=== PATIENT | female | born 1995 | race African-American/Black ===

== ENCOUNTER → 2019-05-11 | Outpatient (CLI) | payer OTHER ==
--- NOTE | 2019-05-11 15:06 | RADIOLOGY REPORT (SQ) ---
EXAM DESCRIPTION: NM PARATHYROID IMAGING COMPLETED DATE/TIME: 05/11/2019 1:49 pm REASON FOR STUDY: HYPERPARATHYROIDISM (E21.3) E21.3 HYPERPARATHYROIDISM, UNSPECIFIED COMPARISON: None. RADIONUCLIDE AND DOSE: 21.5 millicuries Tc-99m Sestamibi. The route of agent administration: Intravenous ADDITIONAL DRUGS AND DOSES: None. TECHNIQUE: Early and delayed images of the neck acquired following radionuclide administration. LIMITATIONS: None. FINDINGS: Thyroid: Normal size. Homogeneous activity. Normal washout. No focal lesions. Parathyroid: No retained activity in the thyroid or elsewhere in the neck to indicate a parathyroid a denoma. Other: No other significant findings. IMPRESSION: NORMAL STUDY. NO EVIDENCE OF PARATHYROID ADENOMA. TECHNICAL DOCUMENTATION: JOB ID: [id number] [employer]- All Rights Reserved Reading location - IP/workstation name: [email or web address]
== END ==
LOC: RAD 10:13
PROVIDERS: ATTEND Internal Medicine Endocrinology, Diabetes & Metabolism
DX: E21.3 Hyperparathyroidism, unspecified (principal)
CPT/HCPCS: 78070; A9500; Q9969

== ENCOUNTER 2019-06-14 12:17 | Emergency (ER) | payer OTHER ==
[2019-06-14] MEDS ORDERED: ONDANSETRON HCL INJ/PF 4 MG/2 ML SDV IV ONE (12:43)
[2019-06-14] MEDS ORDERED: NORMAL SALINE 1000 ML 1,000 ML IV ONE (12:43)
--- NOTE | 2019-06-14 12:43 | ER Document Report ---
ED Medical Screen (RME) - General Chief Complaint: Abdominal Pain Stated Complaint: ABDOMINAL PAIN Time Seen by Provider: 06/14/19 12:40 Primary Care Provider: MINE MIRELES MD [Primary Care Provider] - Follow up as needed TRAVEL OUTSIDE OF THE [place] IN LAST 30 DAYS: No - HPI Notes: 06/14/19 12:42 Patient is a 23-year-old female no significant past medical history who presents complaining of upper abdominal pain with associated nausea and vomiting for the past couple days. She is still urinating normally and having normal bowel movement. Denies drug allergies. No fever. No surgical history to her abdomen. I have treated and performed a rapid initial assessment of this patient. A comprehensive ED assessment and evaluation of the patient, analysis of test results and completion of medical decision making process will be conducted by additional ED providers. PHYSICAL EXAMINATION: GENERAL: Well-appearing, well-nourished and in no acute distress. A&Ox4. Answers questions appropriately. Abdomen: Limited exam in triage, but there is some tenderness to the epigastrium and right upper quadrant. Physical Exam - Vital signs Vitals: Pulse Resp BP Pulse Ox 86 16 117/67 100 06/14/19 12:28 06/14/19 12:28 06/14/19 12:28 06/14/19 12:28 Course - Vital Signs Vital signs: Temp Pulse Resp BP Pulse Ox 86 16 117/67 100 06/14/19 12:28 06/14/19 12:28 06/14/19 12:28 06/14/19 12:28 Doctor's Discharge - Discharge Referrals: MINE MIRELES MD [Primary Care Provider] - Follow up as needed
[2019-06-14 13:34] LABS: ABSOLUTE EOSINOPHILS # (AUTO) 0.1 10^3/uL (0.0-0.6); ABSOLUTE LYMPHOCYTES (AUTO) 1.8 10^3/uL (0.5-4.7); ABSOLUTE MONOCYTES (AUTO) 0.4 10^3/uL (0.1-1.4); ABSOLUTE NEUT (AUTO) 3.4 10^3/uL (1.7-8.2); BASOPHILS % (AUTO) 0.4 % (0-2); EOSINOPHILS % (AUTO) 1.5 % (0-6); HEMATOCRIT 39.5 % (36.0-47.0); HEMOGLOBIN 12.8 g/dL (12.0-15.5); LYMPHOCYTES % (AUTO) 30.9 % (13-45); MEAN CORPUSCULAR HEMOGLOBIN 28.1 pg (27.0-33.4); MEAN CORPUSCULAR HGB CONC 32.4 g/dL (32.0-36.0); MEAN CORPUSCULAR VOLUME 87 fl (80-97); MONOCYTES % (AUTO) 7.7 % (3-13); PLATELET COUNT 275 10^3/uL (150-450); RED BLOOD COUNT 4.55 10^6/uL (3.72-5.28); RED CELL DISTRIBUTION WIDTH 12.1 % (11.5-14.0); SEGMENTED NEUTROPHILS % (AUTO) 59.5 % (42-78); TOTAL CELLS COUNTED % (AUTO) 100 %; WHITE BLOOD COUNT 5.7 10^3/uL (4.0-10.5)
[2019-06-14 13:47] LABS: APPEARANCE,URINE SLIGHTLY-CLOUDY; BILIRUBIN,URINE NEGATIVE (NEGATIVE); COLOR,URINE YELLOW; GLUCOSE, URINE NEGATIVE (NEGATIVE); KETONES,URINE NEGATIVE (NEGATIVE); PROTEIN,URINE NEGATIVE (NEGATIVE); URINE SPECIFIC GRAVITY 1.012; UROBILINOGEN,URINE NEGATIVE mg/dL (<2.0)
[2019-06-14 13:54] LABS: ALBUMIN 4.1 g/dL (3.5-5.0); ALKALINE PHOSPHATASE 77 U/L (38-126); ANION GAP 7 (5-19); ASPARTATE AMINO TRANSFERASE 22 U/L (14-36); BILIRUBIN,DIRECT 0.2 mg/dL (0.0-0.4); BILIRUBIN,TOTAL 0.4 mg/dL (0.2-1.3); BLOOD UREA NITROGEN 7 mg/dL (7-20); CALCIUM 11.8 mg/dL (8.4-10.2); CARBON DIOXIDE 27 mmol/L (22-30); CHLORIDE 106 mmol/L (98-107); GLUCOSE 87 mg/dL (75-110); POTASSIUM 4.6 mmol/L (3.6-5.0); TOTAL PROTEIN 7.1 g/dL (6.3-8.2)
--- NOTE | 2019-06-14 13:57 | RADIOLOGY REPORT (SQ) ---
EXAM DESCRIPTION: U/S ABDOMEN LIMITED W/O DOP COMPLETED DATE/TIME: 06/14/2019 1:41 pm REASON FOR STUDY: epigastric/RUQ pain COMPARISON: None. TECHNIQUE: Dynamic and static grayscale images acquired of the abdomen and recorded on PACS. Additio shane selected color Doppler and spectral images recorded. LIMITATIONS: None. FINDINGS: PANCREAS: No masses. Visualized pancreatic duct normal caliber. LIVER: No masses. Echotexture normal. LIVER VASCULATURE: Normal directional flow of the main portal vein and hepatic veins. GALLBLADDER: Contracted. No stones. Normal wall thickness. No pericholecystic fluid. ULTRASOUND-DETECTED KENNEDY'S SIGN: Negative. INTRAHEPATIC DUCTS AND COMMON DUCT: CBD and intrahepatic ducts normal caliber. No filling defects. INFERIOR VENA CAVA: Normal flow. AORTA: No aneurysm. RIGHT KIDNEY: Normal size. Normal echogenicity. No solid or suspicious masses. No hydronephrosis. P ossible 6 mm lower pole calculus. PERITONEAL AND RIGHT PLEURAL SPACE: No ascites or effusions. OTHER: No other significant findings. IMPRESSION: POSSIBLE NONOBSTRUCTING CALCULUS IN THE LOWER POLE OF THE RIGHT KIDNEY. NO OTHER SIGNIF ICANT FINDINGS. TECHNICAL DOCUMENTATION: JOB ID: [id number] [employer]- All Rights Reserved Reading location - IP/workstation name: [email or web address]
[2019-06-14] MEDS ORDERED: ONDANSETRON HCL INJ/PF 4 MG/2 ML SDV ONE (14:50)
--- NOTE | 2019-06-14 14:55 | ER Document Report ---
ED General - General Chief Complaint: Abdominal Pain Stated Complaint: ABDOMINAL PAIN Time Seen by Provider: 06/14/19 12:40 Primary Care Provider: MINE MIRELES MD [NO LOCAL MD] - Follow up as needed TRAVEL OUTSIDE OF THE [place] IN LAST 30 DAYS: No - Related Data Allergies/Adverse Reactions: No Known Allergies Allergy (Verified 06/14/19 12:45) Past Medical History - Social History Smoking Status: Never Smoker Chew tobacco use (# tins/day): No Frequency of alcohol use: None Drug Abuse: None Family History: Reviewed & Not Pertinent Patient has suicidal ideation: No Patient has homicidal ideation: No Physical Exam - Vital signs Vitals: Pulse Resp BP Pulse Ox 86 16 117/67 100 06/14/19 12:28 06/14/19 12:28 06/14/19 12:28 06/14/19 12:28 - Notes Notes: Patient is [facility] complaining of abdominal pain going on for the past 2 days. She said nausea and 2 episodes of vomiting one yesterday and one this morning. Pain seems be worse with fatty greasy foods. She says no fevers chest pain shortness of breath diarrhea or dysuria with this. Past medical history significant for elevated parathyroid hormone no diabetes or hypertension Social history does not smoke or drink LMP May 26 Review of systems pertinent positives and negatives in HPI otherwise all the systems were reviewed and acutely negative PHYSICIAN EXAM -vital signs are noted triage note and note from triage reviewed GENERAL: Well-appearing, well-nourished and in __no acute distress____ HEAD: Atraumatic, normocephalic. EYES: Pupils equal round and reactive to light, extraocular movements intact, sclera anicteric, conjunctiva are normal. ENT: nares patent, oropharynx clear without exudates. Moist mucous membranes. NECK: supple without lymphadenopathy LUNGS: Breath sounds clear to auscultation bilaterally and equal. No wheezes rales or rhonchi. HEART: Regular rate and rhythm without murmurs ABDOMEN: Soft, nontender, normoactive bowel sounds. Nontender even to deep palpation EXTREMITIES: No deformity, no edema. NEUROLOGICAL: No focal neurological deficits. Moves all extremities spontaneously and on command. PSYCH: Normal mood, normal affect. SKIN: Warm, Dry, normal turgor, no rashes or lesions noted. BACK-nontender in the midline diff Viral syndrome biliary colic Course - Re-evaluation Re-evalutation: 06/14/19 16:32 ED patient is remained stable with serial exams abdomen is remained nontender she was given IV fluids from triage and is tolerating p.o.'s here Ultrasound report was reviewed. Her symptoms not consistent with a kidney stone Medical decision making patient presents with pain across her upper abdomen as sociated with eating fatty greasy foods spelt she has some component of biliary colic. Her symptoms not consistent with a kidney stone and the not even sure it was a kidney stone but no findings to suggest a cholecystitis or gallstones she looks well at this point think she be discharged home. I discussed finds with patient advises that she is to follow-up with her family doctor for a HIDA scan do not feel this is related to her calcium however the calcium may be contributing to possible kidney stone At this time there is no indication for admission. I have discussed the findings with patient/family with return precautions and follow-up recommendations. Verbal discharge instructions given at the bedside and opportunity for questions given. Medication warnings were given if indicated. Patient is in agreement with this plan and has verbalized understanding of return precautions and the need for primary care follow-up as directed.. 06/14/19 16:33 06/14/19 16:34 - Vital Signs Vital signs: Temp Pulse Resp BP Pulse Ox 98.5 F 86 16 117/67 100 06/14/19 15:53 06/14/19 12:28 06/14/19 12:28 06/14/19 12:28 06/14/19 12:28 - Laboratory Result Diagrams: 06/14/19 13:15 06/14/19 13:15 Laboratory results interpreted by me: 06/14/19 06/14/19 13:15 13:15 Calcium 11.8 H Leukocyte Esterase Rfl TRACE H Urine Ascorbic Acid 20 H - Diagnostic Test Radiology reviewed: Reports reviewed Discharge - Discharge Clinical Impression: Biliary dyskinesia Abdominal pain Qualifiers: Abdominal location: upper abdomen, unspecified Qualified Code(s): R10.10 - Upper abdominal pain, unspecified Condition: Good Disposition: HOME, SELF-CARE Instructions: Abdominal Pain ([facility]), Gallbladder Disease ([facility]) Additional Instructions: Please review the discharge instructions, they will tell you about your disease/injury and what you need to return to the ED for Return to the ED if you feel worse or can follow-up with your family doctor Avoid fatty greasy foods Follow-up with your family doctor in 1 to 2 days as you will probably need a HIDA scan check your gallbladder and follow-up on your calcium level Prescriptions: Ondansetron HCl [Zofran 4 mg Tablet] 1 tab PO Q4H PRN #12 tablet PRN Reason: Referrals: MINE MIRELES MD [NO LOCAL MD] - Follow up as needed
[2019-06-14 16:58] VITALS: BP 117/68
== END 2019-06-14 17:04 | disposition home or self-care (01) ==
LOC: ER 12:17
DX: K82.8 Other specified diseases of gallbladder (principal); R10.10 Upper abdominal pain, unspecified; R11.2 Nausea with vomiting, unspecified
CPT/HCPCS: 99284; 96361; 96374; 36415; 83690; 85025; 81025; 80053; 81001; 76705; J2405; J7030

== ENCOUNTER → 2019-07-13 | Outpatient (CLI) | payer OTHER ==
[2019-07-13 12:53] LABS: ALBUMIN 4.2 g/dL (3.5-5.0); CALCIUM 10.5 mg/dL (8.4-10.2); PHOSPHORUS 3.1 mg/dL (2.5-4.5)
== END ==
LOC: OD 12:05
PROVIDERS: ATTEND Otolaryngology
DX: E21.3 Hyperparathyroidism, unspecified (principal)
CPT/HCPCS: 36415; 82040; 82306; 82310; 83735; 83970; 84100

== ENCOUNTER 2019-07-21 08:52 | Day surgery (SDC) | payer OTHER ==
[2019-07-19 11:52] LABS: ABSOLUTE EOSINOPHILS # (AUTO) 0.1 10^3/uL (0.0-0.6); ABSOLUTE LYMPHOCYTES (AUTO) 1.6 10^3/uL (0.5-4.7); ABSOLUTE MONOCYTES (AUTO) 0.3 10^3/uL (0.1-1.4); ABSOLUTE NEUT (AUTO) 2.5 10^3/uL (1.7-8.2); BASOPHILS % (AUTO) 0.6 % (0-2); EOSINOPHILS % (AUTO) 2.6 % (0-6); HEMATOCRIT 38.4 % (36.0-47.0); HEMOGLOBIN 12.6 g/dL (12.0-15.5); MEAN CORPUSCULAR HEMOGLOBIN 28.4 pg (27.0-33.4); MEAN CORPUSCULAR HGB CONC 32.9 g/dL (32.0-36.0); MEAN CORPUSCULAR VOLUME 86 fl (80-97); MONOCYTES % (AUTO) 7.5 % (3-13); PLATELET COUNT 322 10^3/uL (150-450); RED BLOOD COUNT 4.45 10^6/uL (3.72-5.28); RED CELL DISTRIBUTION WIDTH 12.3 % (11.5-14.0); SEGMENTED NEUTROPHILS % (AUTO) 54.3 % (42-78); TOTAL CELLS COUNTED % (AUTO) 100 %; WHITE BLOOD COUNT 4.5 10^3/uL (4.0-10.5)
[2019-07-19 12:11] LABS: ANION GAP 8 (5-19); BLOOD UREA NITROGEN 8 mg/dL (7-20); CALCIUM 10.9 mg/dL (8.4-10.2); CARBON DIOXIDE 23 mmol/L (22-30); CHLORIDE 109 mmol/L (98-107); GLUCOSE 84 mg/dL (75-110); POTASSIUM 5.1 mmol/L (3.6-5.0)
[~2019-07-21 08:52] MED LIST: CEFAZOLIN SODIUM 2 GM in DEXTROSE 5%-WATER 100 ML IV PRN; DEXAMETHASONE SOD PHOSPHATE INJ 4 MG/1 ML VIAL ONE; GLYCOPYRROLATE 1 MG/5 ML VIAL ONE; LACTATED RINGERS 1000 ML IV PRN; LIDOCAINE 0.5% INJ-PF (5 MG/ML) 50 ML SDV SUBCUT PRN; LIDOCAINE 2% INJ-PF (20 MG/ML) 2 ML AMPUL ONE; NEOSTIGMINE METHYLSULFATE 10 MG/10 ML VIAL ONE; ONDANSETRON HCL INJ/PF 4 MG/2 ML SDV ONE; OXYMETAZOLINE HCL 0.05% NASAL SPRAY 15 ML BOTTLE ONE; PHENYLEPHRINE HCL INJ/PF 10 MG/1 ML SDV ONE; ROCURONIUM BROMIDE INJ 50 MG/5 ML VIAL IV ONE; SUCCINYLCHOLINE CHLORIDE INJ 200 MG/10 ML VIAL ONE
[2019-07-21] MEDS ORDERED: FENTANYL CITRATE INJ/PF 250 MCG/5 ML AMPULE ONE (09:32)
[2019-07-21] MEDS ORDERED: MIDAZOLAM 2 MG/2 ML INJ ONE (09:32)
[2019-07-21] MEDS ORDERED: PROPOFOL INJ 200 MG/20 ML VIAL IV ONE (09:33)
[2019-07-21] MEDS ORDERED: LIDOCAINE 2%/EPINEPHRINE INJ 1.7 ML CARTRIDGE ONE (09:35)
[2019-07-21] MEDS ORDERED: MEPERIDINE HCL/PF INJ 25 MG/1 ML DISP.SYRIN IV PRN (10:33)
[2019-07-21] MEDS ORDERED: PROMETHAZINE HCL INJ 25 MG/1 ML VIAL IV PRN ×2 (10:33)
[2019-07-21] MEDS ORDERED: DIPHENHYDRAMINE HCL 50 MG/ML VIAL IV PRN (10:33)
[2019-07-21] MEDS ORDERED: FENTANYL CITRATE INJ/PF 100 MCG/2 ML AMPUL IV PRN ×3 (10:33)
[2019-07-21] MEDS ORDERED: OXYCODONE-ACETAMINOPHEN 5-325 MG TABLET PO PRN ×2 (10:33)
[2019-07-21] MEDS ORDERED: LORAZEPAM INJ 2 MG/1 ML VIAL ONE (12:20)
--- NOTE | 2019-07-21 12:36 | Operative Report ---
Operative Report-[facility] Operative Report: Date: 21 July 2019 History: 23-year-old female with a history of primary hyperparathyroidism. Patient also has a history of kidney stones. Patient's PTH was elevated preoperatively to 104 and she also had hypercalcemia. A 4D CT scan identified a parathyroid adenoma located inferior to the inferior pole of the left thyroid lobe. A rapid PTH drawn today revealed a value of 88.6. Patient presents today for a neck exploration and parathyroidectomy with frozen section analysis and rapid intraoperative PTH. Informed consent was obtained from the patient. Preoperative diagnosis: 1. Parathyroid adenoma, left 2. Primary hyperparathyroidism Postoperative diagnosis: Same as above Procedure: 1. Parathyroidectomy, left 2. Neck exploration, left 3. Nerve integrity monitoring 4. Flexible nasopharyngolaryngoscopy Surgeon: Kristian Sanchez MD, FACS. [facility] Loss Prevention Consultant: Wellington Nieto DO Anesthesia: General via endotracheal intubation using a laryngeal EMG endotracheal tube Description of the procedure: A rapid PTH was drawn prior to the patient going to the operating room and the result was 88.6. After receiving informed consent from the patient, the patient was transported to the operating room and placed supine on the operating room table. After successful induction and intubation using a laryngeal EMG tube, a shoulder roll was placed extending the neck. Nerve integrity monitor electrodes were then properly placed on the patient and these electrodes along with the electrodes from the endotracheal tube were connected appropriately to the nerve integrity machine. The nerve integrity monitor was calibrated and found to be functioning normally. The planned incision was marked and then infiltrated with 2% lidocaine with 1:100,000 epinephrine. The patient was then prepped and draped in a sterile fashion. Radiologic studies were available for review which identified the adenoma to be located inferior to the inferior pole of the left lobe of the thyroid. The adenoma measured 22 to 25 mm 15 blade was used to make the incision through the subcutaneous tissues and through the platysma. Subplatysmal flaps were elevated in a limited fashion inferiorly and superiorly. Midline was identified and the strap muscles were . The isthmus of the thyroid was identified. The sternal thyroid muscle was then carefully dissected from the left lobe of the thyroid gland. The dissection continued laterally to expose the left lobe of the thyroid gland. Attention was then focused on the inferior pole where a parathyroid adenoma prospect was located inferior to the inferior pole. This was carefully dissected from surrounding tissue and removed in toto. The pr ospective parathyroid adenoma measured 25 mm in length. Wound bed was inspected and no other adenoma prospects were identified. The recurrent laryngeal nerve was identified and stimulated with the Prass probe. The parathyroid adenoma prospect was sent to pathology for frozen section analysis. The frozen section diagnosis confirmed parathyroid tissue, consistent with parathyroid adenoma. The adenoma weighed 2.25 g. Approximately 15 minutes post excision of the adenoma, a rapid PTH was drawn and sent to the lab. The results was 10.7. This confirmed that the parathyroid adenoma had been successfully excised. The wound was then irrigated with normal saline. Hemostasis was obtained. Surgicel was placed into the wound bed. The wound was then closed in layers. The strap muscles were secured with 4-0 Monocryl as was the subcutaneous tissue and the dermis. Dermabond Mastisol and Steri-Strips were applied along with a gauze dressing. The patient was then given to anesthesia who successfully extubated the patient without any complications. After the extubation a flexible nasopharyngolaryngoscope was inserted through the nasal cavity and into the laryngeal inlet where the vocal cords were evaluated. The vocal cords were found to be mobile bilaterally. Estimated blood loss: 10 mL Fluids: 500 mL The patient was then transported to the postanesthesia care unit in stable condition with spontaneous respirations. No complications.
[2019-07-21] MEDS ORDERED: HYDROCODONE/ACETAMINOPHEN 5-325 MG TABLET PO PRN (12:50)
[2019-07-21] MEDS ORDERED: ONDANSETRON HCL INJ/PF 4 MG/2 ML SDV IV PRN (12:51)
[2019-07-21] MEDS ORDERED: HYDROCODONE/ACETAMINOPHEN 5-325 MG TABLET ONE (13:30)
[2019-07-21 15:27] VITALS: BP 120/74
== END 2019-07-21 14:55 | disposition home or self-care (01) ==
LOC: OROUT 08:52
PROVIDERS: ATTEND Otolaryngology
DX: D35.1 Benign neoplasm of parathyroid gland (principal); E21.3 Hyperparathyroidism, unspecified; E55.9 Vitamin D deficiency, unspecified
CPT/HCPCS: 36415 ×2; 84132; 85025; 81025; 80048; 83970; 88305 ×2; 88331; 00320; 60502; J2250; J3490 ×5; J0690; J1100; J3010; J2710; J2060; J2370; J0330; J2405; J7060; J2704; 320

== ENCOUNTER → 2019-08-04 | Outpatient (CLI) | payer OTHER ==
[2019-08-04 09:18] LABS: ALBUMIN 4.4 g/dL (3.5-5.0); PHOSPHORUS 4.3 mg/dL (2.5-4.5)
== END ==
LOC: OD 08:25
PROVIDERS: ATTEND Otolaryngology
DX: E21.3 Hyperparathyroidism, unspecified (principal)
CPT/HCPCS: 36415; 82040; 82310; 83735; 83970; 84100